=== PATIENT | female | born 1960 | race Caucasian/White ===

== ENCOUNTER 2017-01-03 17:02 | Emergency (ER) | payer OTHER ==
[~2017-01-03] VITALS: Ht 154.9 cm; Wt 72.1 kg
[2017-01-03 17:10] VITALS: BP 122/73
--- NOTE | 2017-01-03 17:43 | PHYS DOC ---
Past Medical History Past Medical History: No Pertinent History Past Surgical History: No Surgical History Smoking: Less than 1pk/day Alcohol Use: None Drug Use: None Adult General Chief Complaint Chief Complaint: LOWEREXTREMITY INJURY HPI HPI Patient is a 56 year old female who presents with right lower leg pain after falling and proximally 1610 today. The patient fell down approximately 3 steps after tripping. She hit her right leg on the steps and landed on her bottom. There is a skin tear to the anterior right lower leg. She has not been able to bear weight since the injury. She also has some pain in the right lateral hip. She denies hitting her head or loss of consciousness. She does not have any weakness, numbness, incontinence of bowel or bladder, saddle anesthesia, nausea , vomiting, or abdominal pain. She is unsure of her last tetanus immunization booster. She sees a PCP at [facility]. Review of Systems Review of Systems Constitutional: Denies fever or chills. [] GI: Denies abdominal pain, nausea, vomiting. [] Musculoskeletal: Reports right lower leg and right hip pain. Integument: Denies rash or skin lesions. Reports right lower leg skin tear. Neurologic: Denies headache, focal weakness or sensory changes. Denies loss of consciousness, incontinence, or saddle anesthesia. All systems reviewed and negative unless otherwise stated in the HPI. Allergies Allergies Allergies Coded Allergies Type Severity Reaction Last Updated Verified No Known Drug Allergies 01/03/17 No Physical Exam Physical Exam Constitutional: Well developed, well nourished, no acute distress, non-toxic appearance. [] HENT: Normocephalic, atraumatic, oropharynx moist. [] Eyes: PERRLA, EOMI, conjunctiva normal, no discharge. [] Neck: Normal range of motion, no midline or paraspinal tenderness, supple, no stridor. [] Skin: Warm, dry, no erythema, no rash. There is a 3 x 7 cm skin tear to the anterior portion of the right lower leg. Back: No midline tenderness, no CVA tenderness. [] Extremities: Right lower leg tenderness, ROM intact, no edema. 2+ pedal pulses. Less than 2 second capillary refill in the toes. Light touch sensation intact distally. Extremities 2: Right lateral hip tenderness, ROM intact, no edema. Neurovascularly intact distally. Neurologic: Alert and oriented X 3, normal motor function, normal sensory function, no focal deficits noted. [] Psychologic: Affect normal, judgement normal, mood normal. [] Current Patient Data Vital Signs Vital Signs Date Time Temp Pulse Resp B/P Pulse Ox O2 Delivery O2 Flow Rate FiO2 01/03/17 17:10 98.0 81 16 97 Room Air 98.0 EKG EKG [] Radiology/Procedures Radiology/Procedures Two-view x-ray of the right tib-fib and three-view x-ray of the right hip and pelvis were reviewed and interpreted by myself with Dr. Martin. There are no acute fractures or dislocations. Course & Med Decision Making Course & Med Decision Making Pertinent Labs and Imaging studies reviewed. (See chart for details) The abrasion on the lower leg was cleaned and irrigated by ED RN. Steri-Strips were placed over the wound using Mastisol for additional adhesive. A sterile dressing was applied. The patient is instructed to follow-up with [facility] tomorrow for Worker's Compensation. She is discharged home with prescriptions for Robaxin and Ultram. She is given contact information for orthopedics for follow-up. Return precautions were discussed. She verbalizes understanding and agrees with plan. Dragon Disclaimer Dragon Disclaimer This electronic medical record was generated, in whole or in part, using a voice recognition dictation system. Departure Departure Impression: Primary Impression: Skin tear of right lower leg without complication Additional Impressions: Lower leg pain Hip pain, right Disposition: 01 HOME, SELF-CARE Condition: STABLE Referrals: [facility]EE MD Patient Instructions: Contusion, [id number], Hip Pain, Skin Tear Care, Easy- to-Read Additional Instructions: There were no broken bones or dislocations seen on your x-rays today. Your wound was covered with Steri-Strips, like butterfly bandages. These will come off on their own. Please take the prescribed medications as directed. Do not drive or operate heavy machinery while taking these medications. Please follow-up with the orthopedic doctor listed below if your pain continues. Return to the emergency department if you have any new or concerning symptoms. Scripts Methocarbamol (Robaxin)500 Mg [id number] Mg PO QID #20 TAB Prov:CLARKE LEACH 01/03/17 Tramadol Hcl (Ultram)50 Mg [id number] Mg PO Q6H PRN PAIN #20 TAB Prov:CLARKE LEACH 01/03/17 Problem Qualifiers Primary Impression: Skin tear of right lower leg without complication Encounter type: initial encounter Qualified Code: S81.811A - Laceration without foreign body, right lower leg, initial encounter Additional Impressions: Lower leg pain Laterality: right Qualified Code: M79.661 - Pain in right lower leg CLARKE LEACH Jan 03, 2017 17:43
[2017-01-03] MEDS ORDERED: METH-37 PO (18:45)
[2017-01-03] MEDS ORDERED: TRAM-29 PO (18:45)
--- NOTE | 2017-01-04 08:01 | RAD ---
Pelvis and right hip radiographs History: Hip pain, fall from stairs. Comparison: None. Findings: AP view of the pelvis. AP and frog-leg views of the right hip. No acute fracture or dislocation is identified. Slight right hip degeneration is seen. Impression: No acute osseous traumatic injury identified.
--- NOTE | 2017-01-04 08:13 | RAD ---
Right tibia and fibula radiographs History: Fell down steps, pain and laceration of the proximal lower leg. Comparison: None. Findings: AP and lateral views of the right tibia and fibula. On the frontal view, distal aspect of the fibula and fibula were excluded from the examination. No acute fracture or acute malalignment is identified. There is soft tissue irregularity and evidence of some gas involving the anterior proximal lower leg, compatible with provided history of laceration. No radiopaque foreign body is seen. A few soft tissue calcifications are present. Impression: Laceration of the anterior proximal lower leg. No acute osseous traumatic injury identified.
== END 2017-01-03 18:58 | disposition home or self-care (01) ==
LOC: ER 17:02
DX: S81.811A Laceration without foreign body, right lower leg, initial encounter (principal); M25.551 Pain in right hip; F17.200 Nicotine dependence, unspecified, uncomplicated; W18.09XA Striking against other object with subsequent fall, initial encounter; Y93.89 Activity, other specified; Y92.89 Other specified places as the place of occurrence of the external cause; Y99.8 Other external cause status
CPT/HCPCS: 73502; 73590; 99284